=== PATIENT | female | born 1940 | race Caucasian/White ===

== ENCOUNTER 2017-08-07 11:11 | Emergency (ER) | payer MEDICARE ==
[~2017-08-07] VITALS: Ht 175.3 cm; Wt 113.4 kg
--- OUTSIDE RECORDS SUMMARY | 2017-08-07 11:14 | XMS REPORT | Clinical Summary ---
Author Author [facility] Address Unknown Phone Unavailable Care Team Providers [employer] Name Role Phone Luis Tillman MD PCP Allergies No Known Allergies Current Medications Prescription Sig. Disp. Refills Start End Date Status Date atorvastatin (LIPITOR) 10 Take 1 tablet by mouth Active MG tablet daily. hydroCHLOROthiazide daily. 04/02/20 Active (MICROZIDE) 12.5 mg 05 capsule lansoprazole (PREVACID) daily. Active 30 MG capsule lisinopril daily. Active (PRINIVIL,ZESTRIL) 20 mg tablet traMADol (ULTRAM) 50 mg as needed. Active tablet cephalexin (KEFLEX) 500 Take 1 capsule (500 mg 30 capsule 0 09/08/19 09/18/19 MG capsule total) by mouth 3 (three) 17 17 times a day for 10 days. Active Problems No known active problems Encounters Date Type Specialty Care Team Description 01/31/2017 Office Visit OtolaryngologBharat Grubbs MD Skin cancer of face (Primary Dx) 11/15/2016 Office Visit OtolaryngoBharat Mcguire MD Skin cancer of face (Primary Dx) 10/18/2016 Office Visit OtolarynBharat Saab MD Skin cancer of face (Primary Dx) 09/25/2016 Office Visit OttroyynBharat Saab MD Skin cancer of face (Primary Dx) 09/20/2016 Office Visit OtolarynBharat Saab MD Skin cancer of face (Primary Dx) 09/13/2016 [facility] Plastic Surgery Bharat Coronado MD Encounter 09/13/2016 Procedure Pass Plastic Surgery 09/13/2016 Surgery Plastic Surgery Bharat Coronado MD LOCAL REGIONAL RECONSTRUCTION RIGHT SCALP DEFECT POSSIBLE FULL THICKNESS SKIN GRAFT 09/08/2016 Anesthesia Plastic Surgery Tomasa Nicholson, TRANSPORTATION ENGINEERING TECHNICIAN Event 09/07/2016 Office Visit Otolaryngology Bharat Coronado MD Basal cell carcinoma, face (Primary Dx);Skin cancer of face 09/07/2016 Documentation Otolaryngology Melodie Lawrence MA 09/07/2016 Documentation Otolaryngology Maylin Strauss MA after 08/06/2016 Family History Medical History Relation Name Comments Stroke Mother Relation Name Status Comments Mother Social History Tobacco Use Types Packs/Day Years Used Date Never Smoker Smokeless Tobacco: Never Used Alcohol Use Drinks/Week oz/Week Comments No Sex Assigned at Date Recorded Not on file Last Filed Vital Signs Vital Sign Reading Time Taken Blood Pressure 120/70 01/31/2017 11:17 AM CDT Pulse 91 01/31/2017 11:17 AM CDT Temperature 36.6 C (97.8 F) 01/31/2017 11:17 AM CDT Respiratory Rate 17 09/13/2016 4:50 PM CDT Oxygen Saturation 94% 09/13/2016 4:50 PM CDT Inhaled Oxygen - - Concentration Weight 114 kg (252 lb) 01/31/2017 11:17 AM CDT Height 175.3 cm (5' 9") 01/31/2017 11:17 AM CDT Body Mass Index 37.21 01/31/2017 11:17 AM CDT Plan of Treatment Date Type Specialty Care Team Description 08/08/2017 Office Visit Otolaryngology Bharat Coronado MD [address] [address] Health Maintenance Due Date Last Done Comments COLONOSCOPY 1992 MAMMOGRAM 1992 ZOSTER VACCINE 2002 PNEUMOCOCCAL 12/16/2007 POLYSACCHARIDE VACCINE AGE 65 AND OVER PNEUMOCOCCAL-13 12/16/2007 INFLUENZA VACCINE 01/30/2017 Procedures Procedure Name Priority Date/Time Associated Diagnosis Comments ID AN ELECTIVE Routine 09/13/2016 ENDOTRACHEAL AIRWAY 11:57 AM CDT Procedure Note - Aung Taylor CRNA - 09/13/2016 11:55 AM CDT Airway Date/Time: 09/13/2016 11:34 AM Performed by: AUNG TAYLOR Authorized by: TIO FIELD Location: OR Urgency: Elective Difficult Airway: No Anesthesio logist: TIO FIELD Resident/C RNA: AUNG TAYLOR Performed by: resident/C RNA Preoxygena rashawn with 100% O2: Yes C-spine Precaution s Maintained Throughout : Yes Mask Ventilatio n: Easy mask Final Airway Type: Endotrache al airway Final Endotrache al Airway: ETT and reinforced tube Cuffed: Yes Technique Used: Direct laryngosco py Devices/Me thods Used in Placement: Intubatin g stylet Insertion Site: Oral Blade Type: Whaley Laryngosco pe Blade/Vide olaryngosc ope Blade Size: 2 ETT Size (mm): 6.5 Cuff at minimum occlusion pressure: Yes Measured from: Lips ETT to Lips (cm): 21 Placement Verified by: CO2 detection, direct visualizat ion and equal breath sounds Laryngosco pic view: Grade I - full view of glottis Rapid Sequence Induction (RSI): No Modified RSI: No Number of Attempts at Approach: 1 LOCAL REGIONAL 09/13/2016 Skin cancer of face RECONSTRUCTION RIGHT 10:45 AM CDT SCALP DEFECT POSSIBLE FULL THICKNESS SKIN GRAFT Case Notes EST 2.5HRS, SALES STORE CHECKER Special Needs EST 2.5HRS, SALES STORE CHECKER after 08/06/2016 Results * Estimated GFR (09/11/2016 12:55 PM) Only the most recent of 2 results within the time period is included. Component Value Ref Range GFR Non Af Amer 34 (A) mL/min/1.73 m2 GFR Af Amer 41 (A) mL/min/1.73 m2 Comment: Chronic kidney disease: <60 mL/min/1.73m2 Kidney failure: <15 mL/min/1.73m2 The estimated GFR is calculated from the IDMS-traceable Modification of Diet in Renal Disease Equation. The accuracy of the calculation is poor when the creatinine is normal. Calculated values >90 mL/min/1.73m2 are not reported. This equation has not been validated in children (<18 years), women, the elderly (>70 years), or ethnic groups other than Caucasians and Americans. Specimen Performing Laboratory Plasma specimen [facility] DEPARTMENT OF PATHOLOGY AND GENOMIC MEDICINE [address] [place] [id number] * Basic metabolic panel (09/11/2016 12:55 PM) Only the most recent of 2 results within the time period is included. Component Value Ref Range Sodium 140 135 - 148 mEq/L Potassium 4.2 3.5 - 5.0 mEq/L Chloride 101 98 - 112 mEq/L CO2 23 (L) 24 - 31 mEq/L Anion gap 16 (H) 7 - 15 mEq/L Comment: Starting from September , anion gap calculation no longer incorporates potassium. Please note the change. BUN 26 (H) 8 - 23 mg/dL Creatinine 1.5 (H) 0.5 - 0.9 mg/dL Glucose 97 65 - 99 mg/dL Calcium 8.8 8.8 - 10.2 mg/dL Specimen Performing Laboratory Plasma specimen [facility] OF PATHOLOGY [facility] GENOMIC MEDICINE [address] [place] [id number] * ECG 12 lead (09/07/2016 6:21 PM) Component Value Ref Range Ventricular rate 72 Atrial rate 72 ID interval 142 QRSD interval 98 QT interval 406 QTC interval 444 P axis 1 38 QRS axis 1 -34 T wave axis 20 EKG impression Normal sinus rhythm-Left axis deviation-Abnormal ECG-No previous ECGs available- Specimen Performing Laboratory [facility] [address] [place] [id number] * CBC with platelet and differential (09/07/2016 5:03 PM) Component Value Ref Range WBC 14.39 (H) 4.50 - 11.00 k/uL RBC 4.18 (L) 4.20 - 5.50 m/uL HGB 12.4 12.0 - 16.0 g/dL HCT 38.9 37.0 - 47.0 % MCV 93.1 82.0 - 100.0 fL MCH 29.7 27.0 - 34.0 pg MCHC 31.9 31.0 - 37.0 g/dL RDW - SD 43.5 37.0 - 55.0 fL MPV 10.5 8.8 - 13.2 fL Platelet count 316 150 - 400 k/uL Nucleated RBC 0.00 /100 WBC Neutrophils 61.4 39.0 - 69.0 % Lymphocytes 28.1 25.0 - 45.0 % Monocytes 6.8 0.0 - 10.0 % Eosinophils 2.6 0.0 - 5.0 % Basophils 0.6 0.0 - 1.0 % Immature granulocytes 0.5Comment: "Immature granulocytes" 0.0 - 1.0 % (promyelocytes, myelocytes, metamyelocytes) Specimen Performing Laboratory Blood [facility] OF PATHOLOGY [facility] GENOMIC MEDICINE [address] [place] [id number] after 08/06/2016 Insurance Payer Benefit Subscriber ID Type Phone Address Plan / Group BCBS MEDICARE BLUE [id number] PPO MEDICARE ADVANTAGE PPO
--- NOTE | 2017-08-07 12:36 | Diagnostic Imaging Report ---
PROCEDURE:X-RAY RIGHT KNEE, THREE OR MORE VIEWS COMPARISON:None. INDICATIONS:RIGHT KNEE PAIN FINDINGS: The bones are well-mineralized. There are no fractures, subluxations, lytic or blastic lesions. There is no evidence of a joint effusion. CONCLUSION: No acute radiographic abnormality. Dictated by: Jose Michele M.D. on 08/07/2017 at 12:46 Electronically approved by: Jose Michele M.D. on 08/07/2017 at 12:46
== END 2017-08-07 14:59 | disposition home or self-care (01) ==
LOC: ER 11:11
DX: M25.561 Pain in right knee (principal); M25.461 Effusion, right knee; S83.411A Sprain of medial collateral ligament of right knee, initial encounter; Y93.89 Activity, other specified; Y92.008 Other place in unspecified non-institutional (private) residence as the place of occurrence of the external cause; C94.80 Other specified leukemias not having achieved remission
CPT/HCPCS: 99283

== ENCOUNTER → 2017-08-31 | Outpatient (CLI) | payer MEDICARE ==
--- NOTE | 2017-09-03 07:57 | Diagnostic Imaging Report ---
Right knee MRI without contrast. History: Knee pain. Fall. Medial meniscus tear. Comparison: None. Technique: Multiplanar multi-sequence MRI of the knee without contrast. Findings: Medial compartment: There is a complex tear involving the posterior horn and body segments of the medial meniscus with a radial component adjacent to the posterior root. This is best seen on axial series 4 image 20. The medial meniscus is subluxed to the periphery. There is articular cartilage fraying and deep fissuring in the medial compartment with underlying bone marrow edema. There are peripheral marginal osteophytes. The medial collateral ligament complex is intact. Lateral compartment: There is degeneration and fraying of the lateral meniscus. The lateral compartmental articular cartilage surfaces are thinned. There are peripheral marginal osteophytes. The lateral collateral ligament complex is intact. Intercondylar notch: The ACL and PCL are intact. Patellofemoral compartment: There are regions of full-thickness articular cartilage loss in the patellofemoral compartment with underlying bone marrow edema. There are peripheral marginal osteophytes. Extensor mechanism: The quadriceps and patellar tendons are normal. Other findings: There is a joint effusion and synovitis. There is no acute fracture, subluxation or avascular necrosis. 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 Regions of full-thickness articular cartilage loss in the patellofemoral compartment with underlying bone marrow edema. Less severe degenerative arthrosis in the lateral compartment of the knee. Signed by: Dr. Elias Carcamo M.D. on 09/03/2017 7:53 AM
== END ==
LOC: MRI 16:32
PROVIDERS: ATTEND Specialist
DX: S83.221A Peripheral tear of medial meniscus, current injury, right knee, initial encounter (principal); S83.411A Sprain of medial collateral ligament of right knee, initial encounter